=== PATIENT | female | born 1970 | race Caucasian/White ===

== ENCOUNTER 2016-08-28 17:52 | Emergency (ER) | payer BC ==
[2016-08-28 18:02] VITALS: BP 148/84
--- NOTE | 2016-08-28 18:13 | UC ---
Lower Extremity/Ankle HPI - History of Current Complaint Chief Complaint: UCLowerExtremity Stated Complaint: LEFT PINKY TOE INJURY Time Seen by Provider: 08/28/16 18:07 Hx Obtained From: Patient Hx Last Menstrual Period: ablation ?: No Onset/Duration: Sudden Onset - left 5th toe hit a cabinet with a cramp in the leg, Lasting Hours - 1, Still Present Severity Initially: Severe Severity Currently: Moderate Aggravating Factor(s): Standing, Ambulation Alleviating Factor(s): Rest, Elevation Able to Bear Weight: Yes - Risk Factors Gout Risk Factors: Psoriasis - Allergies/Home Medications Allergies/Adverse Reactions: Allergies Allergy/AdvReac Type Severity Reaction Status Date / Time Latex Allergy Rash Verified 08/28/16 18:02 Metronidazole [From Flagyl] Allergy Rash Verified 08/28/16 18:02 Povidone Iodine Allergy Rash Verified 08/28/16 18:02 [From Betadine] Home Medications: Home Medications Cephalexin CAP* [Keflex CAP*] 500 mg PO QID 08/28/16 [History Confirmed 08/28/16 ] hydrOXYzine HCL TAB* [Atarax TAB*] 25 mg PO BEDTIME PRN 08/28/16 [History Confirmed 08/28/16] predniSONE TAB* [Deltasone TAB*] 30 mg PO DAILY 08/28/16 [History Confirmed 12/07] PMH/Surg Hx/FS Hx/Imm Hx Previously Healthy: No - Psoriasis Cardiovascular History Of: Denies: Hypertension Respiratory History Of: Denies: Asthma GI/ History Of: Reports: Kidney Stones - RT KIDNEY STONES, YEARS, NO TREATMENT Neurological History Of: Reports: Migraine - Hx OF, NONE IN PAST YEAR - Surgical History Surgical History: Yes Surgery Procedure, Year, and Place: 1988 T&A [facility] . 1990, 1998, 1999 (& TUBAL LIGATION) [facility] 2000 D&[facility]. 2011 RT HAND RECONSTRUCTION & CARPAL RUNNEL RELEASE [place]. Gall Bladder - [facility] - Family History Known Family History: Positive: Cardiac Disease, Hypertension, Diabetes - Social History Occupation: Employed Full-time - OR nurse Lives: With Family Alcohol Use: Occasionally Alcohol Amount: FEW DRINKS/MONTH Substance Use Type: None Smoking Status (MU): Former Smoker Type: Cigarettes Amount Used/How Often: 1/2 PPD 20 YRS Have You Smoked in the Last Year: No When Did the Patient Quit Smoking/Using Tobacco: 2009 Review of Systems Skin: Bruising All Other Systems Reviewed And Are Negative: Yes Physical Exam Triage Information Reviewed: Yes Appearance: Well-Appearing, Well-Nourished, Pain Distress - with ambulation Vital Signs: Initial Vital Signs Temp 98.2 F 08/28/16 17:58 Pulse 70 08/28/16 17:58 Resp 16 08/28/16 17:58 BP 148/84 08/28/16 17:58 Pulse Ox 98 08/28/16 17:58 Vital Signs Reviewed: Yes Eyes: Positive: Conjunctiva Clear Neck exam: Normal Respiratory Exam: Normal Cardiovascular Exam: Normal Musculoskeletal: Positive: No Edema, ROM Limited @ - Left 5th toe angulated laterally. Neurological Exam: Normal Psychological Exam: Normal Skin Exam: Normal Lower Extremity Course/Dx - Differential Dx/Diagnosis Differential Diagnosis/HQI/PQRI: Dislocation, Fracture (Closed), Fracture (Open) , Sprain Provider Diagnoses: Closed Left fifth toe middle phalynx fracture. Discharge - Discharge Plan Condition: Stable Disposition: HOME Patient Education Materials: Toe Fracture (ED) Referrals: Olvin Murillo MD [Primary Care Provider] - Lior Millan MD [Medical Doctor] - 1 Day (Walk in available tomorrow.)
[2016-08-28] MEDS ORDERED: Ketorolac INJ* 60 MG/2 ML VIAL IM ONE (18:35)
--- NOTE | 2016-08-28 18:46 | RAD ---
Indication: LEFT fifth toe pain and edema following injury. Comparison: January 10, 2016 radiographs. Technique: 3 views LEFT fifth toe Report: Oblique fracture through the diaphysis of the fifth proximal phalanx with mild override of the fracture fragments and mild apex medial and plantar angulation. 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 Normal articular alignment. Soft tissue swelling of the fifth toe and lateral aspect of the forefoot. IMPRESSION: Nonarticular fracture fifth proximal phalanx.
== END 2016-08-28 19:05 | disposition home or self-care (01) ==
LOC: UCCORT 17:52
DX: S92.512A Displaced fracture of proximal phalanx of left lesser toe(s), initial encounter for closed fracture (principal); W22.09XA Striking against other stationary object, initial encounter; Y93.9 Activity, unspecified; Y92.9 Unspecified place or not applicable; Z88.1 Allergy status to other antibiotic agents; Z87.891 Personal history of nicotine dependence
CPT/HCPCS: 96372; 99212; G0463; J1885